=== PATIENT | female | born 1995 | race Caucasian/White ===

== ENCOUNTER 2025-08-21 01:42 | Emergency (ER) | payer SELFPAY ==
--- NOTE | 2025-08-21 01:46 | ECG_ITS ---
Test Date: 2025-08-21 01:49:45 Measurements Intervals Emblem Rate: 82 P: 65 ND: 131 QRS: 66 QRSD: 90 T: 58 QT: 360 QTc: 422 Interpretive Statements SINUS RHYTHM NORMAL ELECTROCARDIOGRAM No previous ECG available for comparison Electronically Signed On 08-21-2025 07:35:21 CDT by Samy Pandya M.D.
[2025-08-21 01:52] VITALS: BP 140/93; PULSE 65; RESP 16; TEMP 37.2; O2SAT 98
[2025-08-21 03:06] VITALS: BP 127/90; PULSE 79; RESP 16; O2SAT 99
[2025-08-21 03:18] VITALS: RESP 16; O2SAT 99
[2025-08-21 05:09] LABS: BEDSIDEPREGUCG Negative (Negative)
[2025-08-21 05:10] LABS: Hematocrit 35.5 % (37.0-47.0); Hemoglobin 11.7 g/dL (12.0-15.0); Immature Granulocyte Percent A 0.5 % (0-0.5); Lymphocytes Absolute Auto 1.80 K/mm3 (0.9-3.2); Mean Corpuscular HGB Conc 33.0 g/dl (32-36); Mean Corpuscular Hemoglobin 32.4 pg (26-34); Mean Corpuscular Volume 98.3 fl (80-100); Nucleated Red Blood Cells Absolute Auto 0.000 K/mm3 (0.0-0.012); Nucleated Red Blood Cells Perc 0.0 % (0.0-0.2); Platelet Count Result 288 k/mm3 (150-375); Red Blood Count 3.61 M/mm3 (4.2-5.4); White Blood Count 10.2 K/mm3 (4.5-10.0)
[2025-08-21 05:21] LABS: Alanine Aminotransferase 24 U/L (6-35); Albumin Level 3.8 g/dL (3.5-5.1); Alkaline Phosphatase 90 U/L (38-126); Anion Gap 5 mmol/L (4-12); Aspartate Amino Transferase 44 U/L (14-36); Bilirubin,Total 0.1 mg/dL (0.2-1.3); Blood Urea Nitrogen 11 mg/dL (7-17); Calcium 8.5 mg/dL (8.4-10.2); Carbon Dioxide 25 mmol/L (22-30); Chloride 104 mmol/L (98-107); Estimated CRCL calculation 152 ml/min; Estimated Glomerular Filt Rate > 60; Glucose 113 mg/dL (65-110); Magnesium 2.1 mg/dL (1.6-2.3); Potassium 3.6 mmol/L (3.4-5.0); Sodium 134 mmol/L (137-145); Total Protein 6.6 g/dL (6.3-8.2)
[2025-08-21 05:33] LABS: Cannabinoid Screen Urine Positive (Negative)
--- NOTE | 2025-08-21 06:26 | ED.RECABL ---
HPI - Recheck/Abnormal Lab/Rx General Chief Complaint: Recheck/Abnormal Lab/Rx Stated Complaint: heart hurts, organs bursting, being electrocuted Time Seen by Provider: 08/21/25 05:41 History of Present Illness HPI narrative: 29-year-old female presenting to the emergency department with multiple complaints. She endorses smoking weed that she bought off the streets earlier today but initially denies any other drug use. She then told me that she used intranasal ketamine and snorted cocaine in addition to her ketamine yesterday and takes at home Xanax as needed. Patient has multiple complaints including feeling like her organs are on fire and that she is being electrocuted with burning tingling in all her extremities and head. States that this has been slowly subsided during her ER visit here prior to my initial evaluation. Denies any other medical issues. States this has never happened to her before from any of her previous drug use. Related Data Allergies Allergy/AdvReac Type Severity Reaction Status Date / Time No Known Allergies Allergy Verified 08/21/25 06:34 Review of Systems Review of Systems: As reviewed above in HPI Exam Narrative: GENERAL: Disheveled but not any acute distress, answering questions appropriately, not clinically intoxicated HEAD: [Normocephalic, atraumatic.] EYES: [PERRLA and EOMI.] ENT: Nares clear, no rhinorrhea or epistaxis. Mucous membranes moist. NECK: Supple. CHEST: [Clear to auscultation. No respiratory distress.] HEART: [Regular rate and rhythm]. No murmur heard. [Normal peripheral pulses.] ABDOMEN: [Soft, nondistended], [nontender], [No rigidity or guarding] EXTREMITIES: Normal range of motion. [No edema.] SKIN: Warm, dry, no rash. NEURO: [No focal deficits]. Alert and oriented [x3.] PSYCH: [Normal mood and affect.] Course Vital Signs Vital signs: Vital Signs Temperature 37.2 C 08/21/25 01:52 Pulse Rate 65 08/21/25 01:52 Respiratory Rate 16 08/21/25 01:52 Blood Pressure 140/93 H 08/21/25 01:52 Pulse Oximetry 98 08/21/25 01:52 Temperature 37.2 C 08/21/25 01:52 Pulse Rate 74 08/21/25 06:35 Respiratory Rate 16 08/21/25 06:35 Blood Pressure 126/80 08/21/25 06:35 Pulse Oximetry 99 08/21/25 06:35 MDM - Recheck/Abnormal Lab/Rx MDM Narrative Medical decision making narrative: 29-year-old female presenting to the emergency department with multiple complaints. She endorses smoking weed that she bought off the streets earlier today but initially denies any other drug use. She then told me that she used intranasal ketamine and snorted cocaine in addition to her ketamine yesterday and takes at home Xanax as needed. Patient has multiple complaints including feeling like her organs are on fire and that she is being electrocuted with burning tingling in all her extremities and head. States that this has been slowly subsided during her ER visit here prior to my initial evaluation. Denies any other medical issues. States this has never happened to her before from any of her previous drug use. Patient is not any acute distress and has reassuring vital signs here without any tachycardia, tachypnea, fever or hypoxemia with normal blood pressure. Her symptoms are likely related to polysubstance abuse with most likely component of cocaine and ketamine causing her symptoms. Laboratory studies were drawn she was given a small dose of Ativan PO given her symptoms likely sympathomimetic in nature. Pain EKG obtained and laboratory studies showed no significant leukocytosis or significant anemia. Normal platelet count. Electrolytes are largely unremarkable with normal creatinine, normal glucose and LFTs largely within normal. Urine test negative. UDS positive for benzos cocaine and cannabis, she also endorsed ketamine intranasal earlier today. EKG shows sinus rhythm, no ectopy or abnormalities with ST segments. Patient re-evaluated had stable vital signs. Safe for discharge with strict return precautions and instructions to avoid illicit substances. Medical Records Attestation: I reviewed the patient's medical records. Lab Data Attestation: I reviewed the patient's lab results. 08/21/25 05:03 08/21/25 05:03 Labs: Lab Results 08/21/25 08/21/25 Range/Units 05:03 05:07 WBC 10.2 H (4.5-10.0) K/mm3 RBC 3.61 L (4.2-5.4) M/mm3 Hgb 11.7 L (12.0-15.0) g/dL Hct 35.5 L (37.0-47.0) % MCV 98.3 (80-100) fl MCH 32.4 (26-34) pg MCHC 33.0 (32-36) g/dl RDW 12.9 (11.5-14.5) % Plt Count 288 (150-375) k/mm3 MPV 9.8 (7.4-10.4) fl Immature Gran % (Auto) 0.5 (0-0.5) % Neut % (Auto) 73.9 H (45.5-73.1) % Lymph % (Auto) 17.7 L (18.3-44.2) % [place] % (Auto) 5.9 (2.6-8.5) % Eos % (Auto) 1.5 (0-4.4) % Baso % (Auto) 0.5 (0.2-1.2) % Lymph # (Auto) 1.80 (0.9-3.2) K/mm3 [place] # (Auto) 0.6 (0.1-0.6) K/mm3 Eos # (Auto) 0.2 (0-0.3) K/mm3 Baso # (Auto) 0.1 (0.0-0.1) K/mm3 Abs Immat Gran (auto) 0.05 H (0.00-0.031) K/mm3 Absolute Neuts (auto) 7.5 H (1.3-6.7) K/mm3 Absolute Nucleated RBC 0.000 (0.0-0.012) K/mm3 Nucleated RBC % 0.0 (0.0-0.2) % Sodium 134 L (137-145) mmol/L Potassium 3.6 (3.4-5.0) mmol/L Chloride 104 (98-107) mmol/L Carbon Dioxide 25 (22-30) mmol/L Anion Gap 5 (4-12) mmol/L BUN 11 (7-17) mg/dL Creatinine 0.49 L (0.7-1.0) mg/dL Estim Creat Clear Calc 152 ml/min Estimated GFR > 60 (59 - ) Glucose 113 H (65-110) mg/dL Calcium 8.5 (8.4-10.2) mg/dL Magnesium 2.1 (1.6-2.3) mg/dL Total Bilirubin 0.1 L (0.2-1.3) mg/dL AST 44 H (14-36) U/L ALT 24 (6-35) U/L Alkaline Phosphatase 90 (38-126) U/L Total Protein 6.6 (6.3-8.2) g/dL Albumin 3.8 (3.5-5.1) g/dL POC Urine HCG, Qual Negative (Negative) Urine Opiates Screen Negative (Negative) Urine Methadone Screen Negative (Negative) Ur Barbiturates Screen Negative (Negative) Ur Phencyclidine Scrn Negative (Negative) Ur Amphetamine Screen Negative (Negative) U Benzodiazepines Scrn Positive A (Negative) Urine Cocaine Screen Positive A (Negative) U Cannabinoids Screen Positive A (Negative) Discharge Plan Discharge Clinical Impression: Polysubstance abuse Patient Disposition: Home Condition: Stable Instructions: Antibiotic Form, Polysubstance Use Disorder (ED) Additional Instructions: Your laboratory studies showed no acute urgent or emergent abnormalities, organ functions look appropriate. Vital signs are all stable and normal. Your symptoms are consistent with the effects of ketamine and cocaine as well as the other drugs in her system and will take time for the substances to washout but we have given you a small dose of Ativan to help counteract the cocaine. Refrain from using any illicit substances and only take your prescribed medications. Follow-up with regular primary care provider. Return at any time with any emergent issues or concerns. Patient Language: Latvian Follow-up/Referrals: PHYSICIAN,[employer] [Primary Care Provider, Internal Medicine] Time of Disposition: 06:15
[2025-08-21 06:35] VITALS: BP 126/80; PULSE 74; RESP 16; O2SAT 99
[2025-08-21] MEDS: LORazepam (*CRX) 1 MG TABLET PO (06:35)
== END 2025-08-21 06:43 | disposition home or self-care (01) ==
PROVIDERS: Emergency Provider Student in an Organized Health Care Education/Training Program
DX: F19.10 Other psychoactive substance abuse, uncomplicated (principal)
CPT/HCPCS: 36415; 80053; 80307; 81025; 83735; 85025; 93005; 99283; A9270